=== PATIENT | male | born 1930 | race Caucasian/White ===

== ENCOUNTER 2017-02-13 15:22 | Emergency (ER) | payer MEDICARE, OTHER ==
[~2017-02-13] VITALS: Ht 167.6 cm; Wt 77.3 kg
[2017-02-13 15:26] VITALS: BP 123/55; PULSE 48; RESP 15; O2SAT 96
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
[2017-02-13 15:44] LABS: BASOPHILS % (AUTO) 0.2 % (0-3); EOSINOPHILS % (AUTO) 3.6 % (0-5); MONOCYTES % (AUTO) 15.5 % (4-12); Mean Corpuscular Hemoglobin 34.5 pg (27.0-35.0); Mean Corpuscular Volume 96.8 fL (81-100); Platelet Count 147 bil/L (150-400)
[2017-02-13 16:09] LABS: TROPONIN T < 0.010 ug/L (0.0-0.011)
[2017-02-13 16:56] VITALS: BP 136/47; PULSE 49; RESP 16; O2SAT 95
--- NOTE | 2017-02-13 17:11 | DRSVH ---
PROCEDURE: X-RAY CHEST ONE VIEW, PORTABLE ([id number]) INDICATIONS: pain TECHNIQUE: One view of the chest was acquired. COMPARISON: [facility], , CHEST 2 VIEW, 09/05/2014, 14:59. FINDINGS: Surgical changes and devices: None. Lungs and pleura: No pleural effusions or pneumothorax. Lungs are clear. There is some elevation o f the left hemidiaphragm on the current film, a new finding. Mediastinum: Mediastinal contours appear normal. Heart size is normal. Bones and chest wall: No suspicious bony lesions. Overlying soft tissues appear unremarkable. IMPRESSION: Acute disease is not seen in the chest but there is elevation of the left hemidiaphragm c ompared to old films. Cause is not identified. Calcified lymph nodes, a normal finding in the abdomen. Dictated by: Pavel Clements M.D. on 02/13/2017 at 17:07 Approved by: Pavel Clements M.D. on 02/13/2017 at 17:09
[2017-02-13 17:36] VITALS: BP 124/84; PULSE 42; RESP 18; O2SAT 98
== END 2017-02-13 17:55 | disposition home or self-care (01) ==
LOC: SED 15:22 → EDBD 15:22 → SED 17:55
DX: R07.2 Precordial pain (principal); R00.1 Bradycardia, unspecified; Z85.46 Personal history of malignant neoplasm of prostate; Z88.1 Allergy status to other antibiotic agents; Z88.8 Allergy status to other drugs, medicaments and biological substances